=== PATIENT | female | born 1960 | race Caucasian/White ===

== ENCOUNTER → 2017-06-25 | Outpatient (CLI) | payer OTHER | LOC: BRMIMAGING 08:21 | PROVIDERS: ATTEND Family Medicine | DX: Z12.31 Encounter for screening mammogram for malignant neoplasm of breast (principal); Z80.3 Family history of malignant neoplasm of breast; R92.8 Other abnormal and inconclusive findings on diagnostic imaging of breast | CPT/HCPCS: G0202 ==

== ENCOUNTER → 2017-07-06 | Outpatient (CLI) | payer OTHER | LOC: BRMIMAGING 08:48 | PROVIDERS: ATTEND Family Medicine | DX: R92.8 Other abnormal and inconclusive findings on diagnostic imaging of breast (principal) | CPT/HCPCS: 76641-PO; G0206 ==

== ENCOUNTER → 2018-07-14 | Outpatient (CLI) | payer OTHER | LOC: BRMIMAGING 08:11 | PROVIDERS: ATTEND Family Medicine | DX: Z12.31 Encounter for screening mammogram for malignant neoplasm of breast (principal) ==